=== PATIENT | male | born 1970 | race Two or more races ===

== ENCOUNTER 2017-03-07 18:43 | Emergency (ER) | payer OTHER ==
[2017-03-07 19:11] VITALS: TEMP 98; BMI 24.0
--- NOTE | 2017-03-07 19:53 | PDOC ---
History of Present Illness - General History Source: Patient Exam Limitations: No Limitations - History of Present Illness Initial Comments: 03/07/17 20:21 The patient is a 47 year old male, with a significant past medical history of HTN, GERD and anxiety, who presents to the emergency department with elevated blood pressure onset today. He notes that he went to urgent care for his blood pressure, who advised him to come to the ED to get an EKG as the patient was not satisfied with the EKG machine at the location. Upon arrival he noted that the urgent care physician had changed one of his blood pressure medications. He also noted that his PMD no longer took his insurance and was trying to figure out what he should do in terms of either changing insurance or changing PMD. The patient denies chest pain, palpitations, shortness of breath, headache and dizziness. Allergies: None Past surgical history: LAPAROSCOPIC INGUINAL HERNIA REPAIR Social history: Cigarette use (10 daily). No alcohol or drug use reported PMD - Dr. Brennan Decker <Abdirizak Nazario - Last Filed: 03/07/17 20:20> <Gemma Yeh - Last Filed: 03/08/17 01:30> - General Chief Complaint: Blood Pressure Problem Stated Complaint: HTN Time Seen by Provider: 03/07/17 19:10 Past History <Abdirizak Nazario - Last Filed: 03/07/17 20:20> - Past Medical History Anemia: No Asthma: No Cancer: No Cardiac Disorders: No CVA: No COPD: No CHF: No Dementia: No Diabetes: No GI Disorders: Yes (GERD) Disorders: No HTN: Yes Hypercholesterolemia: No Liver Disease: No Psychiatric Problems: Yes (ANXIETY,DEPRESSION) Seizures: No Thyroid Disease: No - Surgical History Abdominal Surgery: Yes (LAPAROSCOPIC INGUINAL HERNIA REPAIR) Appendectomy: No Cardiac Surgery: No Cholecystectomy: No Lung Surgery: No Neurologic Surgery: No Orthopedic Surgery: No - Psycho/Social/Smoking Cessation Hx Suicidal Ideation: No Smoking History: Current every day smoker Have you smoked in the past 12 months: Yes Number of Cigarettes Smoked Daily: 10 Information on smoking cessation initiated: Yes 'Breaking Loose' booklet given: 03/07/17 Hx Alcohol Use: No Drug/Substance Use Hx: No Substance Use Type: None Hx Substance Use Treatment: No <Gemma Yeh - Last Filed: 03/08/17 01:30> - Past Medical History Allergies/Adverse Reactions: Allergies Allergy/AdvReac Type Severity Reaction Status Date / Time No Known Allergies Allergy Verified 03/07/17 18:45 Home Medications: Ambulatory Orders Atenolol [Tenormin -] 50 mg PO DAILY 08/23/16 Pantoprazole Sodium [Protonix] 40 mg PO DAILY 08/23/16 Sertraline HCl [Zoloft] 100 mg PO HS 08/23/16 Review of Systems - Review of Systems Able to Perform ROS?: Yes Comments:: 03/07/17 20:21 GENERAL/CONSTITUTIONAL: No fever or chills. No weakness. HEAD, EYES, EARS, NOSE AND THROAT: No change in vision. No ear pain or discharge. No sore throat. CARDIOVASCULAR: No chest pain or shortness of breath RESPIRATORY: No cough, wheezing, or hemoptysis. GASTROINTESTINAL: No nausea, vomiting, diarrhea or constipation. GENITOURINARY: No dysuria, frequency, or change in urination. MUSCULOSKELETAL: No joint or muscle swelling or pain. No neck or back pain. SKIN: No rash NEUROLOGIC: No headache, vertigo, loss of consciousness, or change in strength/ sensation. ENDOCRINE: No increased thirst. No abnormal weight change HEMATOLOGIC/LYMPHATIC: No anemia, easy bleeding, or history of blood clots. ALLERGIC/IMMUNOLOGIC: No hives or skin allergy. <Abdirizak Nazario - Last Filed: 03/07/17 20:20> *Physical Exam - Vital Signs Last Vital Signs Temp Pulse Resp BP Pulse Ox 98 F 82 20 165/74 98 03/07/17 18:45 03/07/17 18:45 03/07/17 18:45 03/07/17 18:45 03/07/17 18:45 - Physical Exam Comments: 03/07/17 20:21 GENERAL: Awake, alert, and fully oriented, in no acute distress HEAD: No signs of trauma, normocephalic, atraumatic EYES: PERRLA, EOMI, sclera anicteric, conjunctiva clear ENT: Auricles normal inspection, hearing grossly normal, nares patent, oropharynx clear without exudates. Moist mucosa NECK: Normal ROM, supple, no lymphadenopathy, JVD, or masses LUNGS: No distress, speaks full sentences, clear to auscultation bilaterally HEART: Regular rate and rhythm, normal S1 and S2, no murmurs, rubs or gallops, peripheral pulses normal and equal bilaterally. ABDOMEN: Soft, nontender, normoactive bowel sounds. No guarding, no rebound. No masses EXTREMITIES: Normal inspection, Normal range of motion, no edema. No clubbing or cyanosis. NEUROLOGICAL: Cranial nerves II through XII grossly intact. Normal speech, normal gait, no focal sensorimotor deficits SKIN: Warm, Dry, normal turgor, no rashes or lesions noted. <Abdirizak Nazario - Last Filed: 03/07/17 20:20> - Vital Signs Last Vital Signs Temp Pulse Resp BP Pulse Ox 98 F 82 20 165/74 98 03/07/17 18:45 03/07/17 18:45 03/07/17 18:45 03/07/17 18:45 03/07/17 18:45 <Gemma Yeh - Last Filed: 03/08/17 01:30> Medical Decision Making - Medical Decision Making Documentation has been prepared under my direction and personally reviewed by me in its entirety. I attest that this documented accurately reflects all work, treatment, procedures and medical decision making performed by me. As noted above, this 47-year-old man was sent here from urgent care for evaluation. He presented there with a history of hypertension/anxiety. During his workup, EKG was performed. Automatic interpretation of the tracing was noted to have "bundle branch block " and "abnormal repolarization possible coronary ischemia", and patient was referred here. Meanwhile, the patient's antihypertensive and anxiety medications were changed by urgent care physician. Patient currently denies chest pain. He has a two-year history of intermittent left upper chest pain which is not associated with activity and has been evaluated by his PMD without evidence for coronary artery disease. Patient is unsure whether he will follow-up with his PMD (Dr. Decker) or find new physician because of his insurance has changed recently. Exam as noted 12-lead electrocardiogram performed here shows normal sinus rhythm at 77 beats per minute; intervals, axis and waveforms are all normal. There is no evidence of repolarization abnormality or bundle branch block. Results discussed with the patient. He will take medications as prescribed and follow-up with the physician (either Dr. Decker or a new physician within the next week). Smoking cessation was discussed with him also. He should return to the emergency room if he has persistent chest pressure/shortness of breath or develops any new palpitations/lightheadedness. <Gemma Yeh - Last Filed: 03/08/17 01:30> *DC/Admit/Observation/Transfer - Attestations Scribe Attestion: 03/07/17 20:21 Documentation prepared by Abdirizak Nazraio, acting as medical equipment repair technician for Gemma Yeh MD <Abdirizak Nazario - Last Filed: 03/07/17 20:20> <Gemma Yeh - Last Filed: 03/08/17 01:30> Diagnosis at time of Disposition: Anxiety, Atypical chest pain Hypertension Qualifiers: Hypertension type: essential hypertension Qualified Code(s): I10 - Essential ( primary) hypertension - Discharge Dispostion Disposition: HOME Condition at time of disposition: Stable - Patient Instructions Printed Discharge Instructions: How to Quit Smoking, High Blood Pressure Additional Instructions: take medications as prescribed quit smoking as discussed return to ER if you experience shortness of breath,chest pressure followup with general medical doctor within 1 week
[2017-03-07 20:24] VITALS: BP 145/92; PULSE 78
--- NOTE | 2017-03-08 17:16 | EKG ---
Test Reason : Blood Pressure : / mmHG Vent. Rate : 077 BPM Atrial Rate : 077 BPM P-R Int : 170 ms QRS Dur : 110 ms QT Int : 390 ms P-R-T Axes : 059 -21 062 degrees QTc Int : 441 ms NORMAL SINUS RHYTHM NORMAL ECG NO PREVIOUS ECGS AVAILABLE Confirmed by PACHECO GIL MD ([id number]) on 03/08/2017 5:16:06 PM Referred By: [facility] Confirmed By:PACHECO GIL MD
== END 2017-03-07 20:38 | disposition home or self-care (01) ==
LOC: FER 18:43
DX: I10 Essential (primary) hypertension (principal); F41.9 Anxiety disorder, unspecified; R07.89 Other chest pain; K21.9 Gastro-esophageal reflux disease without esophagitis
CPT/HCPCS: 93005; 93010; 99282-25